=== PATIENT | female | born 1980 | race Caucasian/White ===

== ENCOUNTER 2021-12-13 16:13 | Emergency (ER) | payer OTHER ==
[~2021-12-13] VITALS: Ht 157.5 cm; Wt 68.2 kg
[2021-12-13] MEDS ORDERED: KETOROLAC TROMETHAMINE 10 MG TABLET PO ONE (20:15)
[2021-12-13] MEDS ORDERED: METHOCARBAMOL 500 MG TABLET PO ONE (20:15)
[2021-12-13] MEDS ORDERED: GABA-1181 PO (20:30)
[2021-12-13 20:49] VITALS: BP 117/68
== END 2021-12-13 21:03 | disposition home or self-care (01) ==
LOC: EMS 16:13
DX: S29.012A Strain of muscle and tendon of back wall of thorax, initial encounter (principal); S46.812A Strain of other muscles, fascia and tendons at shoulder and upper arm level, left arm, initial encounter; Z98.890 Other specified postprocedural states; X58.XXXA Exposure to other specified factors, initial encounter; Y93.89 Activity, other specified; Y92.89 Other specified places as the place of occurrence of the external cause; Y99.0 Civilian activity done for income or pay
CPT/HCPCS: 99283